=== PATIENT | female | born 1950 | race African-American/Black ===

== ENCOUNTER 2016-08-20 09:44 | Emergency (ER) | payer BC, OTHER ==
[~2016-08-20 09:44] MED LIST: BENTYL20 PO; CELEXA20 PO; DELTADOSE; DEP250 PO; DEPAKOT250 PO; DICYCLOMINE PO; FLUCON1 PO; GLUCOPHAGE1000 MG PO; GLUCPH PO; HUMIRA PEN SC; LEVAQUIN5T PO; LEVAQUIN750 MG PO; LEVOTHROID112 MCG PO; LEVOTHROID125 MCG PO; NEUR300 PO; PENTASA PO; PENTASA500 MG PO; PERCOCET1 TA4 PO; PRILO PO; PRILOSEC40 MG PO; PRIN20 PO; RANITIDINE PO; SEROQUEL50 MG PO; SPIRIVA INH; SYMBICORT 160/41 INH INH; SYN125 PO; SYNTHROID PO; TRAZ50 PO; ZANTAC150 MG PO; ZANTAC300 MG PO; [UNRECOGNIZED DRUG - OTHER] PO; [UNRECOGNIZED DRUG - OTHER] PO; [UNRECOGNIZED DRUG - REMARK]
[2016-08-20 10:10] LABS: BASOPHILS 0 %; EOSINOPHILS 1.3 %; EOSINOPHILS ABSOLUTE 0.09 10/3/uL (0.0-0.53); ER CBC TAT 0 Hrs 03 Mins; HEMOGLOBIN 12.7 g/dL (12.0-16.0); IMMATURE GRANULOCYTES 0.1 %; IMMATURE GRANULOCYTES ABSOLUTE 0.01 10/3/uL (0.0-0.11); LYMPHOCYTES 26.9 %; LYMPHOCYTES ABSOLUTE 1.91 10/3/uL (0.67-4.30); MEAN CORPUS HGB CONC 33.8 g/dL (32.0-36.0); MEAN CORPUSCULAR HEMOGLOB 24.2 pg (26.0-34.0); MEAN CORPUSCULAR VOLUME 71.6 fL (80-100); MEAN PLATELET VOLUME 9.9 fL (9.2-13.0); MONOCYTES ABSOLUTE 0.64 10/3/uL (0.21-1.20); NEUTROPHILS 62.7 %; NEUTROPHILS ABSOLUTE 4.45 10/3/uL (2.02-8.40); PLATELET COUNT 195 10/3/uL (150-400); RBC DISTRIBUTION WIDTH 17.2 % (12.0-16.0); RED CELL COUNT 5.25 10/6/uL (4.0-5.6); WHITE BLOOD CELLS 7.1 10/3/uL (4.5-10.5)
[2016-08-20 10:11] LABS: HEMATOCRIT 37.6 % (36.0-48.0); MANUAL DIFF NO %
[2016-08-20 10:26] LABS: ALBUMIN 3.4 G/DL (3.5-5.0); BUN (BLOOD UREA NITROGEN) 5 MG/DL (6-23); CALCIUM, SERUM 8.9 MG/DL (8.5-10.4); CHLORIDE, SERUM 111 MMOL/L (96-112); CO2 (CARBON DIOXIDE) 25 MMOL/L (24-34); CREATININE 0.89 MG/DL (0.55-1.02); GFR AFRICAN AMERICAN 79 ML/MIN (>=60); GFR NON AFRICAN AMERICAN 68 ML/MIN (>=60); GLUCOSE, SERUM 125 MG/DL (60-99); SGOT(AST) 9 U/L (5-40); SGPT(ALT) 13 U/L (5-65); SODIUM, SERUM 145 MMOL/L (135-148); TOTAL BILIRUBIN 0.3 MG/DL (0-1.2); TOTAL PROTEIN 6.8 G/DL (6.0-8.5)
[2016-08-20 10:27] LABS: ALKALINE PHOSPHATASE 98 U/L (45-117); GLOBULIN 3.4 G/DL (2.5-4.1); POTASSIUM, SERUM 3.5 MMOL/L (3.5-5.3)
[2016-08-20] MEDS ORDERED: NEUR300 PO (10:28)
[2016-08-20] MEDS ORDERED: PERCOCET 10/3251 TAB PO (10:28)
[2016-08-20 10:29] LABS: LACTATE 1.4 MMOL/L (0.3-2.4)
[2016-08-20] MEDS ORDERED: TRAZ50 PO (10:29)
[2016-08-20] MEDS ORDERED: SYMBICORT 160/41 INH INH (10:29)
[2016-08-20] MEDS ORDERED: HUMIRA PEN SC (10:29)
[2016-08-20] MEDS ORDERED: PRILOSEC40 MG PO (10:30)
[2016-08-20] MEDS ORDERED: ZANTAC300 MG PO (10:30)
[2016-08-20] MEDS ORDERED: ANOROELLIPTA INH (10:30)
[2016-08-20] MEDS ORDERED: PROAIR HFA INH (10:30)
[2016-08-20] MEDS ORDERED: LEVOTHYROXIN125 MCG PO (10:31)
[2016-08-20] MEDS ORDERED: GLUCOPHAGE1000 MG PO (10:31)
[2016-08-20] MEDS ORDERED: PENTASA500 MG PO (10:31)
[2016-08-20] MEDS ORDERED: PRIN20 PO (10:31)
[2016-08-20 10:35] LABS: ASCORBIC ACID (UR NOT ORDER) NEG (NEG); BILIRUBIN, URINE NEGATIVE (NEG); ER URINALYSIS TAT 0 Hrs 22 Mins; KETONE, URINE NEGATIVE (NEG); LEUKOCYTE ESTERASE(NOT OR NEG (NEG); NITRITE (URINE) NEG (NEG); WBC (NOT ORDERED) (RFLEX) < 1 (0-5)
== END 2016-08-20 12:34 | disposition home or self-care (01) ==
LOC: ER 09:44
PROVIDERS: Nurse Practitioner
DX: K52.9 Noninfective gastroenteritis and colitis, unspecified (principal); I10 Essential (primary) hypertension; J44.9 Chronic obstructive pulmonary disease, unspecified; E11.9 Type 2 diabetes mellitus without complications; F17.200 Nicotine dependence, unspecified, uncomplicated; Z88.5 Allergy status to narcotic agent; Z86.19 Personal history of other infectious and parasitic diseases; Z79.899 Other long term (current) drug therapy; Z88.8 Allergy status to other drugs, medicaments and biological substances
CPT/HCPCS: 74176; 80053; 81001; 83605; 83690; 85025; 96374; 99284; J2405

== ENCOUNTER 2016-09-29 19:00 | Emergency (ER) | payer BC, OTHER ==
[2016-09-29 18:40] LABS: ASCORBIC ACID (UR NOT ORDER) NEG (NEG); BILIRUBIN, URINE NEGATIVE (NEG); ER URINALYSIS TAT 0 Hrs 14 Mins; KETONE, URINE NEGATIVE (NEG); LEUKOCYTE ESTERASE(NOT OR TRACE (NEG); NITRITE (URINE) NEG (NEG); WBC (NOT ORDERED) (RFLEX) 2 (0-5)
[~2016-09-29 19:00] MED LIST changes: +ANOROELLIPTA INH; +LEVOTHYROXIN125 MCG PO; +PERCOCET 10/3251 TAB PO; +PROAIR HFA INH
== END 2016-09-29 20:22 | disposition home or self-care (01) ==
LOC: ER 19:00
PROVIDERS: Physician Assistant
DX: M54.5 Low back pain (principal); J44.9 Chronic obstructive pulmonary disease, unspecified; K21.9 Gastro-esophageal reflux disease without esophagitis; F41.9 Anxiety disorder, unspecified; Z90.49 Acquired absence of other specified parts of digestive tract; Z90.89 Acquired absence of other organs; Z88.5 Allergy status to narcotic agent; Z88.8 Allergy status to other drugs, medicaments and biological substances; Z79.84 Long term (current) use of oral hypoglycemic drugs; Z79.899 Other long term (current) drug therapy
CPT/HCPCS: 72100; 81001; 96372; 99283; J2405